=== PATIENT | female | born 1990 | race American Indian/Alaskan Native ===

== ENCOUNTER 2017-10-02 19:30 | Emergency (ER) | payer OTHER ==
[2017-10-02 21:03] LABS: Bacteria,Urine 1+ /HPF (Negative); Bilirubin,Urine NEG (Negative); Blood,Urine NEG (Negative); Color,Urine Yellow (Yellow); Mucus,Urine 2+ /HPF; Nitrite,Urine NEG (Negative)
[2017-10-02 21:05] LABS: HCG Qualitative,Urine Negative (Negative)
--- NOTE | 2017-10-02 22:25 | Emergency Department Report ---
ED Female HPI - General Chief complaint: Urogenital-Female Stated complaint: CYST VAGINA Time Seen by Provider: 10/02/17 22:20 Source: patient Mode of arrival: Ambulatory Limitations: No Limitations - History of Present Illness Initial comments: Patient reports that she has vaginal cyst that has been ongoing for 3 days. She said this is the third time she has this. She was here in 09/05/2016 for similar problem. She was treated with sulfa and Flagyl. Patient denies any vaginal discharge or bleeding. Denies any abdominal or back pain. Denies any urinary burning and frequency urgency. Patient says she's been using warm compresses and sitz baths over the last 3 days to help to soften the area up. She says she goes to some outside [facility] for primary care and [facility]. She said that her [facility] had drained cyst in the area in the past. Pain to groin left and left vaginal area is 9 out of 10 aching and throbbing. Worse with touch and walk-in better with resting. She says she took [id number] pain medication but it didn't relieve her pain. Denies any drainage from site. Denies any fever or chills. Tetanus vaccine is not up-to-date per patient MD Complaint: other (vaginal cyst) Onset/Timin -: days(s) Location: labia Radiation: other (left groin from left labia) Severity: severe Severity scale (0 -10): 9 Quality: aching, other (throbbing in) Consistency: constant Improves with: other (rest) Worsens with: movement, other (touch) Are you Now?: No Associated Symptoms: denies: vaginal discharge, vaginal bleeding, abdominal pain , nausea/vomiting, fever/chills, headaches, loss of appetite, dysuria, hematuria , rash, seizure, shortness of breath, syncope, weakness - Related Data Sexually active: No Previous Rx's Medication Instructions Recorded Last Taken Type metroNIDAZOLE [Flagyl TAB] 500 mg PO Q12HR #14 tab 09/05/16 Unknown Rx Acetaminophen/Codeine [Tylenol 1 tab PO Q6H PRN 3 Days #12 tab 10/03/17 Unknown Rx /Codeine # 3 tab] Fluconazole [Diflucan TAB] 150 mg PO ONCE PRN 1 Days #1 tablet 10/03/17 Unknown Rx Ibuprofen [Motrin 800 MG tab] 800 mg PO Q8HR PRN 5 Days #15 10/03/17 Unknown Rx tablet Sulfamethoxazole/Trimethoprim 1 each PO BID 10 Days #20 tablet 10/03/17 Unknown Rx [Bactrim DS TAB] Allergies Allergy/AdvReac Type Severity Reaction Status Date / Time No Known Allergies Allergy Verified 09/05/16 07:32 ED Review of Systems ROS: Stated complaint: CYST VAGINA Other details as noted in HPI Comment: All other systems reviewed and negative Constitutional: no symptoms reported ENT: denies: throat pain Respiratory: no symptoms reported Cardiovascular: denies: chest pain, palpitations, dyspnea on exertion, edema, syncope, paroxysmal nocturnal dyspnea Gastrointestinal: denies: abdominal pain, nausea, vomiting, diarrhea, constipation, hematemesis, melena, hematochezia Genitourinary: other (vaginal cyst). denies: urgency, dysuria, frequency, hematuria, discharge, abnormal menses Musculoskeletal: denies: back pain, joint swelling, arthralgia, myalgia Skin: other (cyst the vaginal area). denies: rash Neurological: denies: headache, weakness, numbness, paresthesias, confusion, abnormal gait, vertigo ED Past Medical Hx - Past Medical History Previous Medical History?: Yes Additional medical history: HERNIATED DISC. UMBILICAL HERNIA. Vaginal abscess 3 - Surgical History Past Surgical History?: Yes Additional Surgical History: Hernia repair - Family History Family history: hypertension - Social History Smoking Status: Current Every Day Smoker Substance Use Type: None - Medications Home Medications: Home Medications Medication Instructions Recorded Confirmed Last Taken Type metroNIDAZOLE [Flagyl TAB] 500 mg PO Q12HR #14 tab 09/05/16 Unknown Rx Acetaminophen/Codeine [Tylenol 1 tab PO Q6H PRN 3 Days #12 tab 10/03/17 Unknown Rx /Codeine # 3 tab] Fluconazole [Diflucan TAB] 150 mg PO ONCE PRN 1 Days #1 tablet 10/03/17 Unknown Rx Ibuprofen [Motrin 800 MG tab] 800 mg PO Q8HR PRN 5 Days #15 10/03/17 Unknown Rx tablet Sulfamethoxazole/Trimethoprim 1 each PO BID 10 Days #20 tablet 10/03/17 Unknown Rx [Bactrim DS TAB] ED Physical Exam - General Limitations: No Limitations General appearance: alert, in no apparent distress - Head Head exam: Present: atraumatic, normocephalic, normal inspection - Eye Eye exam: Present: normal appearance, PERRL, EOMI Pupils: Present: normal accommodation - ENT ENT exam: Present: normal exam, normal orophraynx, mucous membranes moist - Neck Neck exam: Present: normal inspection, full ROM, other (no C-spine tenderness). Absent: tenderness, meningismus, lymphadenopathy, thyromegaly - Respiratory Respiratory exam: Present: normal lung sounds bilaterally. Absent: respiratory distress, chest wall tenderness, accessory muscle use - Cardiovascular Cardiovascular Exam: Present: regular rate, normal rhythm, normal heart sounds. Absent: systolic murmur, diastolic murmur - GI/Abdominal GI/Abdominal exam: Present: soft, normal bowel sounds. Absent: distended, tenderness, guarding, rebound, rigid, organomegaly, mass, bruit, pulsatile mass , hernia - Rectal Rectal exam: Present: normal inspection - External exam: Present: erythema (left labia), swelling (left labia), other ( left labia indurated 6 x 2 cm positive fluctuance). Absent: normal external exam, lesions, lacerations, ecchymosis - Expanded Exam Expanded Female exam: Present: vulvar erythema, vulvar tenderness, other (bilateral groin without any hernia or adenopathy). Absent: vaginal laceration, tissue present in vagina, herpetic lesions, foreign body - Extremities Exam Extremities exam: Present: normal inspection, full ROM, normal capillary refill , other (no clubbing, cyanosis or edema. +2 pulses in all extremities. No neurovascular compromise.). Absent: tenderness, pedal edema, joint swelling, calf tenderness - Back Exam Back exam: Present: normal inspection, full ROM. Absent: tenderness, CVA tenderness (R), CVA tenderness (L), muscle spasm, paraspinal tenderness, vertebral tenderness, rash noted - Neurological Exam Neurological exam: Present: alert, oriented X3, normal gait. Absent: motor sensory deficit, reflexes normal - Psychiatric Psychiatric exam: Present: normal affect, normal mood - Skin Skin exam: Present: warm, dry, intact, normal color, erythema (left labia), other (patient with abscess and cellulitis to left labia) - Expanded Skin Exam Expanded Type of lesion: Present: abscess. Absent: laceration, foreign body, bite/sting , abrasion Distribution of rash: genitals (left labia) Description of rash: Present: size (6 cm in length and 2 cm in width), tenderness, erythematous, swelling, fluctuant, indurated. Absent: macular, papular, vesicular, blisters, confluent, bullous, petechial, purpuic, urticarial , crusting, discharge ED Course Vital Signs 10/02/17 19:40 Temperature 98.5 F Pulse Rate 100 H Respiratory 17 Rate Blood Pressure 108/65 O2 Sat by Pulse 99 Oximetry - Reevaluation(s) Reevaluation #1: 10/03/17 00:07 Patient given Motrin 800 mg by mouth preprocedure of incision and drainage. She was given Boostrix 0.5 mL IM to update tetanus. Reevaluation #2: 10/03/17 00:11 Clindamycin 600 mg im empiracally for abscess and cellulitis labia majora - I & D Left Vagina Type of Procedure: Complex Site: left labia majora Blade Size: 11 I & D Procedure: betadine prep, sterile drapes applied, sterile dressing applied , gauze wick placed Progress: Incision and drainage procedure: Patient with abscess and cellulitis to left labia majora with positive induration and fluctuant. Area cleansed with iodine followed by normal saline. 0.5% Marcaine 5 mL used to achieve anesthesia locally. 0.25 cm incision made to Center of abscess and noted copious amount of serous fang drainage without any odor came from sites and copious amount expressed from site. Patient still has some indurated area and outer border of abscess. Iodoform packing placed followed by dry gauze dressing and patient to return to her [facility] and if she cannot get in to her [facility] to emergency room to have packing removed. Patient tolerated procedure well. ED Medical Decision Making - Medical Decision Making ED course: Patient here for abscess of left labia majora. This is recurrent for patient and she said this is the third time it happened to her. She has been seen and treated by her document review attorney at some outside Medical [facility] for similar problem. Patient given Motrin 800 mg by mouth, clindamycin 600 mg IM and booster 0.5 mL to update tetanus, and Percocet for infection and preprocedure pain. Incision and drainage procedure done please refer to procedure note for details. Patient tolerated procedure well. I instructed the patient she needs to return to the emergency room or her [facility] office at some outside Medical Center to have packing removed in 4 days which will be . She requests then antifungal medication for yeast or K she said when she takes antibiotics she always gets a yeast infection. Patient is in stable condition and in no pain at present. Patient discharged home with prescription for Motrin, Tylenol 3, Diflucan x1 when necessary and Bactrim DS. He was on the side a discharge instruction and treatment plan and need to follow-up to remove packing. She also knows that she has to apply warm compresses to affected area 3 times a day and to keep packing in for 4 days until she returned for removal. Critical care attestation.: If time is entered above; I have spent that time in minutes in the direct care of this critically ill patient, excluding procedure time. ED Disposition Clinical Impression: Abscess of left genital labia, Cellulitis of labia majora, Encounter for incision and drainage procedure, Labial pain Disposition: TO HOME OR SELFCARE Is pt being admited?: No Does the pt Need Aspirin: No Condition: Stable Instructions: Abscess (ED), Abscess Incision and Drainage (ED), Acute Wound Care (ED) Additional Instructions: Take antibiotic as prescribed If you develop a yeast infection U can take Diflucan as ordered Follow-up with your [facility] at [facility] in 4 days to remove packing in 4 daysand if you cannot get an appointment with the [facility] you can return to the emergency room for removal. Keep affected area clean and dry and please do not remove packing . Followed discharge instruction on acute wound care . Please return to emergency room if you develop increasing redness, streaking, fever, increase in swelling and pain to the vaginal area. Please do not drive or operate heavy machinery while taking Tylenol No. 3 as this medication causes drowsiness Prescriptions: Acetaminophen/Codeine [Tylenol /Codeine # 3 tab] 1 tab PO Q6H PRN 3 Days #12 tab PRN Reason: Pain, Moderate (4-6) Fluconazole [Diflucan TAB] 150 mg PO ONCE PRN 1 Days #1 tablet PRN Reason: VAGINAL YEAST Ibuprofen [Motrin 800 MG tab] 800 mg PO Q8HR PRN 5 Days #15 tablet PRN Reason: Pain Sulfamethoxazole/Trimethoprim [Bactrim DS TAB] 1 each PO BID 10 Days #20 tablet Referrals: [facility] [Outside] - 10/06/17 (Please call if outside Medical Center on 10/04/2017 to schedule an appointment to have packing removed from the vaginal area on 10/06/2017 by your [facility]. If he cannot get appointment with [facility] and then you can return to the emergency room to have packing removed) Forms: Work/School Release Form(ED)
[2017-10-02] MEDS ORDERED: BOOSTRIX IM ONE (22:26)
[2017-10-02] MEDS ORDERED: MOTRIN PO ONE (22:26)
[2017-10-02] MEDS ORDERED: MARCAINE 0.5% INFILTRATI ONE (22:26)
[2017-10-02] MEDS ORDERED: CLEOCIN IM ONE (23:58)
[2017-10-03 00:35] VITALS: BP 111/76
[2017-10-03] MEDS ORDERED: CLEOCIN ONE (02:19)
== END 2017-10-03 00:39 | disposition home or self-care (01) ==
LOC: ED 19:30
DX: N76.4 Abscess of vulva (principal); F17.200 Nicotine dependence, unspecified, uncomplicated
CPT/HCPCS: 81001; 81025; 90471; 90715; 96372